=== PATIENT | male | born 1970 | race Caucasian/White ===

== ENCOUNTER 2016-12-29 10:14 | Emergency (ER) | payer MEDICAID, OTHER ==
[~2016-12-29] VITALS: Ht 170.2 cm; Wt 80.0 kg
[~2016-12-29 10:14] MED LIST: OXYC-392 PO; PANT40TA3 PO
[2016-12-29 10:18] VITALS: BP 121/80; PULSE 93; RESP 22; TEMP 98.5; O2SAT 94
[2016-12-29 10:25] VITALS: BP 116/72; PULSE 92; RESP 16; O2SAT 95
[2016-12-29] MEDS ORDERED: ASPIRIN 325 MG TAB PO ONE (10:30)
--- NOTE | 2016-12-29 10:39 | PD ---
HPI Chief Complaint: Chest Pain Time Seen by Provider: 10:21 Travel History International Travel<30 days: No Contact w/Intl Traveler<30days: No Traveled to known affect area: No History of Present Illness HPI 46yo M with PMH of alcohol abuse, ?prior VT, HTN presents to the ED with c/o midsternal chest pain today. Pt admits to drinking alcohol. States pain is worst when he lies down, burning. Denies any sob, abdominal pain, focal weakness or numbness. +NBNB vomiting. Pt was admitted to chest pain center 2015 and had negative stress test. PFSH Past Medical History Cardiovascular Problems: Yes (VT 2014 STENTS PROPOSED BUT REFUSED BY PT) Diminished Hearing: No Hypertension: Yes Respiratory: No Migraines: Yes Myocardial Infarction: Yes Tetanus Vaccination: Unknown Influenza Vaccination: No (UNKNOWN ) Past Surgical History Abdominal Surgery: Yes (pyloric stenosis as a baby) Cardiac Surgery: No Other Surgery: Yes (PYLORIC STENOSIS REPAIR AN ) Social History Alcohol Use: Yes (PT STATES HE DRINKS "5 SMALL BOTTLES (SHOTS)" OF LIQUOR DAILY ) Tobacco Use: Yes (3-4 CIGARS DAILY) Substance Use: No Allergies-Medications (Allergen,Severity, Reaction): Coded Allergies: Contrast Media (Verified Allergy, Mild, 12/29/16) Reported Meds & Prescriptions Reported Meds & Active Scripts Active No Active Prescriptions or Reported Medications Review of Systems Except as stated in HPI: all other systems reviewed are Neg Physical Exam Narrative GENERAL: 46yo M not in distress. +Alcohol on breath. SKIN: Warm and dry. HEAD: Atraumatic. Normocephalic. NECK: Trachea midline. No JVD. CARDIOVASCULAR: Regular rate and rhythm. No murmur appreciated. CHEST WALL: No rash. +TTP midsternum. RESPIRATORY: No accessory muscle use. Clear to auscultation. Breath sounds equal bilaterally. GASTROINTESTINAL: Abdomen soft, non-tender, nondistended. No rebound tenderness or guarding. MUSCULOSKELETAL: No obvious deformities. No clubbing. No cyanosis. No edema. NEUROLOGICAL: Awake and alert. No obvious cranial nerve deficits. Motor grossly within normal limits. Normal speech. PSYCHIATRIC: Appropriate mood and affect; insight and judgment normal. Data Data Last Documented VS Vital Signs Date Time Temp Pulse Resp B/P Pulse Ox O2 Delivery O2 Flow Rate FiO2 12/29/16 10:25 89 16 95 Nasal Cannula 4 12/29/16 10:25 116/72 12/29/16 10:18 98.5 Orders Basic Metabolic Panel (Bmp) (12/29/16 10:29) Ckmb (Isoenzyme) Profile (12/29/16 10:29) Complete Blood Count With Diff (12/29/16 10:29) Magnesium (Mg) (12/29/16 10:29) Prothrombin Time / Inr (Pt) (12/29/16 10:29) Act Partial Throm Time (Ptt) (12/29/16 10:29) Troponin I (12/29/16 10:29) Chest, Single Ap (12/29/16 10:29) Aspirin (Aspirin) (12/29/16 10:30) Alcohol (Ethanol) (12/29/16 10:30) Pantoprazole Inj (Protonix Inj) (12/29/16 10:45) CKMB (12/29/16 10:35) CKMB% (12/29/16 10:35) Potassium Chloride (Kcl) (12/29/16 11:30) Potassium Chlor 20 Meq Premix (Kcl 20 Me (12/29/16 11:30) Diphenhydramine Inj (Benadryl Inj) (12/29/16 11:30) Diphenhydramine Inj (Benadryl Inj) (12/29/16 11:30) Electrocardiogram (12/29/16 ) Magnesium Sulfate 1 Gm Premix (Magnesium (12/29/16 13:15) Calcium Gluconate (Calcium Gluconate) (12/29/16 13:15) Potassium, Serum (K) (12/29/16 14:42) Labs Laboratory Tests Test 12/29/16 12/29/16 10:35 15:00 White Blood Count 6.0 TH/MM3 Red Blood Count 5.21 MIL/MM3 Hemoglobin 15.4 GM/DL Hematocrit 44.4 % Mean Corpuscular Volume 85.3 FL Mean Corpuscular Hemoglobin 29.5 PG Mean Corpuscular Hemoglobin 34.6 % Concent Red Cell Distribution Width 12.9 % Platelet Count 178 TH/MM3 Mean Platelet Volume 6.1 FL Neutrophils (%) (Auto) 62.9 % Lymphocytes (%) (Auto) 29.9 % Monocytes (%) (Auto) 5.4 % Eosinophils (%) (Auto) 1.1 % Basophils (%) (Auto) 0.7 % Neutrophils # (Auto) 3.8 TH/MM3 Lymphocytes # (Auto) 1.8 TH/MM3 Monocytes # (Auto) 0.3 TH/MM3 Eosinophils # (Auto) 0.1 TH/MM3 Basophils # (Auto) 0.0 TH/MM3 CBC Comment DIFF FINAL Differential Comment Prothrombin Time 11.2 SEC Prothromb Time International 1.0 RATIO Ratio Activated Partial 25.3 SEC Thromboplast Time Sodium Level 142 MEQ/L Potassium Level 2.8 MEQ/L 3.6 MEQ/L Chloride Level 103 MEQ/L Carbon Dioxide Level 27.8 MEQ/L Anion Gap 11 MEQ/L Blood Urea Nitrogen 7 MG/DL Creatinine 1.00 MG/DL Estimat Glomerular Filtration 81 ML/MIN Rate Random Glucose 151 MG/DL Calcium Level 7.9 MG/DL Magnesium Level 2.2 MG/DL Total Creatine Kinase 212 U/L Creatine Kinase MB 0.6 NG/ML Troponin I LESS THAN 0.02 NG/ML Ethyl Alcohol Level 298 MG/DL [facility] Medical Decision Making Medical Screen Exam Complete: Yes Emergency Medical Condition: Yes Interpretation(s) EKG: NSR 96bpm. LAD. Q wave III. Differential Diagnosis Atypical chest pain vs. GERD vs. musculoskeletal pain vs. alcohol intoxication Narrative Course 46yo M with atypical chest pain and alcohol abuse. Pt just had stress test 3 months ago. Chest pain is very atypical and do not feel it is cardiac. Labs reviewed, no leukocytosis. K is 2.8, replaced orally with 60mEq KCl and 20mEq KCl IV. Troponin negative. Calcium 7.9, replaced orally. Will give magnesium prophylactically since K is low. Blood alcohol is 298. Pt also given aspirin, pantoprazole. Pt given diphenhydramine 50mg IV because he was complaining of feeling itching after pantoprazole. No sob or wheezing. No tongue or lip swelling. CXR negative. After I explained the results, pt wanted detox for alcohol. Explained to him he is not in acute withdrawal and can follow up with [facility]. Repeat K is 3.6. Diagnosis Primary Impression: Atypical chest pain Patient Instructions: General Instructions Departure Forms: Tests/Procedures Additional Instructions: Please follow up with your PMD in 1-2 days. Return to the ED if symptoms worsen. Please follow up with [facility] for detox. Scripts No Active Prescriptions or Reported Meds Disposition: 01 DISCHARGE HOME Condition: Stable Suzanne Haynes DO Dec 29, 2016 10:39
[2016-12-29] MEDS ORDERED: PANTOPRAZOLE SODIUM 40 MG VIAL IV PUSH ONE (10:45)
[2016-12-29 10:47] LABS: AUTOMATED NEUTROPHIL # 3.8 TH/MM3 (1.8-7.7); BASOPHIL % 0.7 % (0.0-2.0); EOSINOPHIL # 0.1 TH/MM3 (0-0.4); EOSINOPHIL % 1.1 % (0.0-4.0); HEMATOCRIT 44.4 % (39.0-51.0); HEMO FLAGS DIFF FINAL; LYMPH % 29.9 % (9.0-44.0); LYMPHOCYTE # 1.8 TH/MM3 (1.0-4.8); MEAN CELL VOLUME 85.3 FL (80.0-100.0); MEAN CORPUSCULAR HEMOGLOBIN 29.5 PG (27.0-34.0); MEAN CORPUSCULAR HGB CONC 34.6 % (32.0-36.0); MONO % 5.4 % (0.0-8.0); NEUT % 62.9 % (16.0-70.0); PLATELET COUNT 178 TH/MM3 (150-450); RED BLOOD COUNT 5.21 MIL/MM3 (4.50-5.90); RED CELL DISTRIBUTION WIDTH 12.9 % (11.6-17.2)
[2016-12-29 11:01] LABS: APTT (PATIENT) 25.3 SEC (24.3-30.1); PROTHROMBIN TIME - PATIENT 11.2 SEC (9.8-11.6)
[2016-12-29 11:09] LABS: ANION GAP 11 MEQ/L (5-15)
[2016-12-29 11:12] LABS: BICARBONATE 27.8 MEQ/L (21.0-32.0); BLOOD UREA NITROGEN 7 MG/DL (7-18); CHLORIDE 103 MEQ/L (98-107); CREATINE KINASE 212 U/L (39-308); GLOMERULAR FILTRATION RATE 81 ML/MIN (>89); MAGNESIUM 2.2 MG/DL (1.5-2.5); SODIUM (NA) 142 MEQ/L (136-145)
[2016-12-29 11:16] LABS: POTASSIUM 2.8 MEQ/L (3.5-5.1)
--- NOTE | 2016-12-29 11:16 | RADRPT ---
EXAM DATE/TIME: 12/29/2016 10:42 [facility] COMPARISON: CHEST SINGLE AP, September 26, 2016, 12:30. INDICATIONS : Pain and tight feeling in chest since last night, short of breath MEDICAL HISTORY : ETOH SURGICAL HISTORY : None. ENCOUNTER: Initial ACUITY: 1 day PAIN SCORE: 5/10 LOCATION: Bilateral chest FINDINGS: A single view of the chest demonstrates the lungs to be symmetrically aerated without evidence of mas s, infiltrate or effusion. The cardiomediastinal contours are unremarkable. Osseous structures are intact. CONCLUSION: No acute disease. Benny Baltazar MD on December 29, 2016 at 11:15 Board Certified Radiologist. This report was verified electronically.
[2016-12-29] MEDS ORDERED: POTASSIUM CHLORIDE 20 MEQ CONTROLLED RELEASE TAB PO ONE (11:30)
[2016-12-29] MEDS ORDERED: diphenhydrAMINE HCL 50 MG/ML VIAL IV PUSH ONE ×2 (11:30)
[2016-12-29] MEDS ORDERED: POTASSIUM CHLOR 20 MEQ PREMIX 100 ML IV ONE (11:30)
[2016-12-29 11:31] LABS: CKMB 0.6 NG/ML (0.5-3.6)
[2016-12-29 13:15] VITALS: BP 121/78; PULSE 86; RESP 16; O2SAT 95
[2016-12-29] MEDS ORDERED: MAGNESIUM SULFATE 1 GM PREMIX 100 ML IV ONE (13:15)
[2016-12-29] MEDS ORDERED: CALCIUM GLUCONATE 500 MG TAB PO ONE (13:15)
[2016-12-29 16:41] VITALS: BP 126/86; PULSE 85; RESP 16; O2SAT 96
--- NOTE | 2016-12-30 22:42 | EKG ---
Date Performed: 12/29/2016 Time Performed: 10:20:11 PTAGE: 46 years EKG: Sinus rhythm NONSPECIFIC T-WAVE ABNORMALITY BORDERLINE ECG PREVIOUS TRACING : 09/29/2016 03.41 Compared to prior tracing no significant change DOCTOR: Elmer Latham Interpretating Date/Time 12/30/2016 22:41:09
== END 2016-12-29 16:44 | disposition home or self-care (01) ==
LOC: NEPE 10:14
DX: R07.89 Other chest pain (principal); I10 Essential (primary) hypertension; I25.2 Old myocardial infarction; R94.31 Abnormal electrocardiogram [ECG] [EKG]; F10.10 Alcohol abuse, uncomplicated; F17.290 Nicotine dependence, other tobacco product, uncomplicated
CPT/HCPCS: 71010; 80048; 80320; 82550; 82552; 83735; 84132; 84484; 85025; 85610; 85730; 93005; 96365; 96366; 96367; 96375; 99285; C9113; J1200; J3475; J3480